=== PATIENT | male | born 1945 | race Caucasian/White ===

== ENCOUNTER 2018-07-25 10:09 | Day surgery (SDC) | payer MEDICARE, OTHER ==
[~2018-07-25 10:09] MED LIST: Acetaminophen TAB* 325 MG PO PRN; Buffered Lidocaine 1% SYRIN* 1 ML/SYRINGE INTRADERM ONE; Cyclopentolate 1% OPTH.SOL* 2 ML BTL ONE; Ketorolac 0.5% OPHTH (NF) 0.5 % 5 ML BTL ONE; Lidocaine 1%* 5 ML VIAL ONE; Neomycin/Polymy/Dex OPHTH.OIN* 3.5 GM ONE; Phenylephrine 2.5% OPTH.SOL* 2 ML BTL ONE; Tetracaine 0.5% OPTH.SOL 4 ML* 1 DROP BTL ONE; Tropicamide 1% OPTH.SOL* BTL ONE
[2018-07-25] MEDS ORDERED: fentaNYL* 50 MCG/ML 2 ML VIAL (100 MCG VIAL) ONE (11:50)
[2018-07-25] MEDS ORDERED: Midazolam* 1 MG/ML 2 ML VIAL (2 MG) ONE (11:51)
[2018-07-25 13:09] VITALS: BP 158/71
--- NOTE | 2018-07-25 20:14 | OP ---
DATE OF OPERATION: 07/25/18 [facility] DATE OF : 43 SURGEON: Dr. Adam Santana. CONTROL PANEL OPERATOR: None. ANESTHESIA: Topical with intravenous sedation. PRE-OP DIAGNOSIS: Cataract, right eye. POST-OP DIAGNOSIS: Cataract, right eye. OPERATIVE PROCEDURE: Phacoemulsification and cataract extraction with posterior chamber intraocular lens implant, right eye. COMPLICATIONS: None. BLOOD LOSS: None. DESCRIPTION OF PROCEDURE: The patient was brought to the operating room and received a small amount of intravenous sedation. A drop of Tetracaine was placed in his right eye. He was prepped and draped in the usual sterile fashion for ophthalmic surgery and attention was directed to the right eye where a speculum was placed. A paracentesis was created at the 11 o'clock position and 0.1 cc of 1 percent preservative-free Lidocaine was injected into the anterior chamber followed by DisCoVisc. The eye was digitally stabilized while a 2.75 mm keratome was used to create a triplanar clear corneal incision at the 9 o'clock position. A continuous curvilinear capsulorrhexis was created with a cystotome and Utrata forceps. BSS on a cannula was used to hydrodissect the lens from the capsule. Phacoemulsification was performed in a divide-and- conquer technique to create four fragments which were removed. Residual cortical material was removed with irrigation and aspiration. DisCoVisc was used to inflate the capsular bag and an AU00T0 12.5 diopter lens was folded and inserted into the capsular bag. DisCoVisc was removed using irrigation and aspiration. BSS on a cannula was used to hydrate the corneal stroma and seal the wound. At the end of the case the pupil was round and the lens was centered. The eye was of normal pressure and the wound was water tight. The speculum was removed and topical Maxitrol ointment was placed on the surface of the eye. The eye was closed, patched and shielded and the patient was sent to the recovery room in stable condition with post operative instructions and follow-up appointment given. [id number]/CPS #: [id number] ROSSY
== END 2018-07-25 12:52 | disposition home or self-care (01) ==
LOC: OREAST 10:09
PROVIDERS: ATTEND Ophthalmology
DX: H25.11 Age-related nuclear cataract, right eye (principal); I10 Essential (primary) hypertension; I48.91 Unspecified atrial fibrillation; Z87.891 Personal history of nicotine dependence; G47.33 Obstructive sleep apnea (adult) (pediatric); D53.9 Nutritional anemia, unspecified
CPT/HCPCS: A9270-GY; J2250; J3010; V2632

== ENCOUNTER 2018-08-01 08:27 | Day surgery (SDC) | payer MEDICARE, OTHER ==
[~2018-08-01 08:27] MED LIST changes: -Cyclopentolate 1% OPTH.SOL* 2 ML BTL ONE; -Ketorolac 0.5% OPHTH (NF) 0.5 % 5 ML BTL ONE; -Lidocaine 1%* 5 ML VIAL ONE; -Neomycin/Polymy/Dex OPHTH.OIN* 3.5 GM ONE; -Phenylephrine 2.5% OPTH.SOL* 2 ML BTL ONE; -Tetracaine 0.5% OPTH.SOL 4 ML* 1 DROP BTL ONE; -Tropicamide 1% OPTH.SOL* BTL ONE
[2018-08-01] MEDS ORDERED: fentaNYL* 50 MCG/ML 2 ML VIAL (100 MCG VIAL) ONE (09:32)
[2018-08-01] MEDS ORDERED: Midazolam* 1 MG/ML 2 ML VIAL (2 MG) ONE (09:32)
[2018-08-01 10:37] VITALS: BP 173/74
--- NOTE | 2018-08-01 11:08 | OP ---
DATE OF OPERATION: 08/01/18 [facility] DATE OF : 43 SURGEON: Dr. Adam Santana. PROJECT MANAGER SENIOR: None. ANESTHESIA: Topical with intravenous sedation. PRE-OP DIAGNOSIS: Cataract, left eye. POST-OP DIAGNOSIS: Cataract, left eye. OPERATIVE PROCEDURE: Phacoemulsification and cataract extraction with posterior chamber intraocular lens implant, left eye. COMPLICATIONS: None. BLOOD LOSS: None. DESCRIPTION OF PROCEDURE: The patient was brought to the operating room and received a small amount of intravenous sedation. A drop of Tetracaine was placed in his left eye. He was prepped and draped in the usual sterile fashion for ophthalmic surgery and attention was directed to the left eye where a speculum was placed. A paracentesis was created at the 5 o'clock position and 0.1 cc of 1 percent preservative-free Lidocaine was injected into the anterior chamber followed by DisCoVisc. The eye was digitally stabilized while a 2.75 mm keratome was used to create a triplanar clear corneal incision at the 3 o' clock position. A continuous curvilinear capsulorrhexis was created with a cystotome and Utrata forceps. BSS on a cannula was used to hydrodissect the lens from the capsule. Phacoemulsification was performed in a divide-and- conquer technique to create four fragments which were removed. Residual cortical material was removed with irrigation and aspiration. DisCoVisc was used to inflate the capsular bag and an AU00T0 14.5 diopter lens was folded and inserted into the capsular bag. DisCoVisc was removed using irrigation and aspiration. BSS on a cannula was used to hydrate the corneal stroma and seal the wound. At the end of the case the pupil was round and the lens was centered. The eye was of normal pressure and the wound was water tight. The speculum was removed and topical Maxitrol ointment was placed on the surface of the eye. The eye was closed, patched and shielded and the patient was sent to the recovery room in stable condition with post operative instructions and follow-up appointment given. [id number] #: [id number] ROSSY
[2018-08-01] MEDS ORDERED: Cyclopentolate 1% OPTH.SOL* 2 ML BTL ONE (15:27)
[2018-08-01] MEDS ORDERED: Neomycin/Polymy/Dex OPHTH.OIN* 3.5 GM ONE (15:27)
[2018-08-01] MEDS ORDERED: Phenylephrine 2.5% OPTH.SOL* 2 ML BTL ONE (15:27)
[2018-08-01] MEDS ORDERED: Tetracaine 0.5% OPTH.SOL 4 ML* 1 DROP BTL ONE (15:27)
[2018-08-01] MEDS ORDERED: Tropicamide 1% OPTH.SOL* BTL ONE (15:27)
[2018-08-01] MEDS ORDERED: Lidocaine 1%* 5 ML VIAL ONE (15:27)
[2018-08-01] MEDS ORDERED: Ketorolac 0.5% OPHTH (NF) 0.5 % 5 ML BTL ONE (15:27)
== END 2018-08-01 10:42 | disposition home or self-care (01) ==
LOC: OREAST 08:27
PROVIDERS: ATTEND Ophthalmology
DX: H25.12 Age-related nuclear cataract, left eye (principal); I48.0 Paroxysmal atrial fibrillation; G47.33 Obstructive sleep apnea (adult) (pediatric); I12.9 Hypertensive chronic kidney disease with stage 1 through stage 4 chronic kidney disease, or unspecified chronic kidney disease; Z87.891 Personal history of nicotine dependence; N18.9 Chronic kidney disease, unspecified; A69.23 Arthritis due to Lyme disease
CPT/HCPCS: A9270-GY; J2250; J3010; V2632

== ENCOUNTER 2019-03-13 21:36 | Emergency (ER) | payer MEDICARE, OTHER ==
--- OUTSIDE RECORDS SUMMARY | 2019-03-13 21:44 | XMS REPORT | Summary of Care ---
:1945 Author Organization [facility] Address [address] [address] Care Team Providers Name Role Phone Mine Shanks MD Primary Care Provider Adam Santana MD Unavailable Encounter Details Date Type Department Care Team Description 03/01/2019 Hospital Encounter [facility] Infusion Center Outpatient [address] [id number] Allergies Active Allergy Reactions Severity Noted Date Comments Billy Inhibitors Rash 12/02/2008 Lethergy, generalized weakness, joint pain Amiodarone SERVICES MANAGER Reaction High 06/08/2008 Apparent cause of severe peripheral neuropathy. Beta Adrenergic Cardiac Reaction 01/10/2013 bradycardia Blockers Dronedarone GI Reaction, Hives Medium 01/24/2013 Metoprolol Other 12/14/2013 Propafenone Other, Musculoskeletal High 08/02/2013 Impaired gait documented as of this encounter (statuses as of 03/03/2019) Medications Medication Sig Dispensed Refills Start Date End Date Status VITAMIN C CR PO Take 1,000 mg by 0 Active mouth TWICE DAILY. Saw [place] (Serenoa Take 500 mg by 0 Active repens) 500 MG Oral Cap mouth TWICE DAILY. COD LIVER OIL PO Take 1 Tab by 0 Active mouth EVERY MORNING. aspirin (ECOTRIN) 81 MG Take 81 mg by 0 Active Oral Tab EC mouth DAILY. finasteride (PROSCAR) 5 Take 5 mg by 0 Active MG Oral Tab mouth DAILY. potassium chloride Take 1 Tab by 90 Tab 3 05/29/2018 Active (K-DUR) 20 MEQ Oral Tab mouth DAILY. CRIndications: Essential hypertension B Complex Vitamins (B Take 1 Tab by 0 Active COMPLEX 1 PO) mouth DAILY. gabapentin (NEURONTIN) Take 1 Cap by 90 Cap 3 11/27/2018 Active 300 MG Oral Cap mouth EVERY BEDTIME. bumetanide (BUMEX) 1 MG Take 1 Tab by 90 Tab 2 11/27/2018 Active Oral TabIndications: mouth DAILY. 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 PAF (paroxysmal atrial fibrillation) 01/10/2013 Overview: Nuclear medicine stress test - 01/06 [facility] normal LV ef ; no ischemia Status post ablation with Dr Lerma - 10/08 with success (12/08)- no pacer BMI 38.0-38.9,adult 12/11/2010 Degenerative lumbar spinal stenosis 05/13/2010 ANDRES (obstructive sleep apnea) 03/07/2009 Overview: Uses cpap- (complicated by Afib and htn ); update - 06/08 Lost 40 lbs and no longer feels he is actively has obsructive sleep apnea; 11/2013 [facility]- CPAP 11 cm pressure 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 Overview: Amiodarone- stopped- on 4 years - but has peripheral neuropathy from this - with mild improvmeent after stopping Has been reevaluated 04/10 by [facility] neurologoy and parkinsons disease/ and MG has been rule out - Diagnosis of primary polyradiuculopathy (EMG finding) made Renal insufficiency 01/15/2008 Anemia 01/15/2008 Overview: Chronic - Has had investigations in the past - documented as of this encounter (statuses as of 03/03/2019) Resolved Problems Problem Noted Date Resolved Date detention current use of anticoagulant therapy 08/02/2013 07/13/2018 Overview: Off anticoag 3 month after successful ablation 02/08 not on anticoag secondary to to falls Warfarin d/c'd 12/12/13 Intial Referral 08/02/13 Referring RCrepetMD Indication Afib Target Range 2.0-3.0 Duration Undetermined Initial Anticoag Orders 08/02/13 CHADS2 Score = 1 for HTN documented as of this encounter (statuses as of 03/03/2019) Immunizations Name Administration Dates Next Due TDAP Vaccine 12/11/2010 documented as of this encounter Social History Tobacco Use Types Packs/Day Years Used Date Former Smoker 3 Quit: 11/14/1967 Smokeless Tobacco: Never Used Alcohol Use Drinks/Week oz/Week Comments Yes 2 Glasses of wine 2.0 occasionally 0 Cans of beer Sex Assigned at Date Recorded Not on file Job Start Date Occupation Industry Not on file Not on file Not on file Travel History Travel Start Travel End No recent travel history available. documented as of this encounter Last Filed Vital Signs Vital Sign Reading Time Taken Comments Blood Pressure 142/72 03/01/2019 1:15 PM EDT Pulse 58 03/01/2019 1:15 PM EDT Temperature 36.9 03/01/2019 1:15 PM C (98.4 EDT F) Respiratory Rate - - Oxygen Saturation - - Inhaled Oxygen Concentration - - Weight 115.8 kg (255 lb 6.4 oz) 03/01/2019 1:15 PM shoes on EDT Height - - Body Mass Index 38.83 02/22/2019 2:32 PM EDT documented in this encounter Plan of Treatment Date Type Specialty Care Team Description 03/08/2019 Appointment Infusion Therapy 03/15/2019 Appointment Infusion Therapy 03/22/2019 Office Visit Hematology and Oncology Veronique Garcia MD [address] [address] [phone] 03/22/2019 Appointment Infusion Therapy 04/10/2019 Lab Internal Medicine 04/17/2019 Office Visit Internal Medicine Mine Shanks MD [address] [place] [address] [phone] 05/10/2019 Office Visit Nephrology Juancarlos Willis DO [address] [address] [phone] 09/26/2019 Office Visit Orthopedics Tashi Moss MD [address] [address] [phone] Health Maintenance Due Date Last Done Comments MEDICARE ANNUAL WELLNESS 1945 VISIT HIV SCREENING 1959 FOOT EXAM 1962 COLONOSCOPY SCREENING 1994 ZOSTER IMMUNIZATION SERIES 1994 (1 of 2) AAA SCREENING/SURVEILLANCE 2009 PNEUMOCOCCAL 65+YRS (1 of 2 2009 - PCV13) HEMOGLOBIN A1C 07/15/2018 01/12/2018, 07/07/2017, 05/15/2015, Additional history exists LIPID DISORDER SCREENING 01/12/2019 01/12/2018, 06/17/2016, 01/11/2008 INFLUENZA VACCINE (#1) 2019 FALL RISK ASSESSMENT 09/29/2019 09/28/2018, 09/28/2018 DEPRESSION SCREENING 10/10/2019 10/09/2018 Diabetic Eye Exam 07/12/2020 07/12/2018, 06/28/2017 HPV IMMUNIZATION SERIES Aged Out No longer eligible based on patient's age to complete this topic MENINGOCOCCAL VACCINE IMM Aged Out No longer eligible based on patient's age to complete this topic documented as of this encounter Goals Goal Patient Goal Associated Recent Patient-Stated? Author Type Problems Progress Blood Pressure Blood Pressure 142/72 No Dimitris, < 140/90 (03/01/2019 MD Mine 1:15 PM EDT) Note: This is an individualized treatment (blood pressure) goal for Miles Meyer: Displayed above (on the left) is your goal for blood pressure control. Your most recent blood pressure is also shown above, on the right. You should try to achieve blood pressures that are lower than your goal listed above (on the left). Glycohemoglobin A1c < 7.0 Diabetes 6.1 (01/12/2018 9:04 AM No Mine Shanks MD EDT) Note: This is an individualized treatment (diabetes control, HgbA1C) goal for Miles Meyer: Displayed above is your progress towards your HgbA1C goal. Your goal is shown above (on the left); your most recent HgbA1C is shown on the right. Note that lower numbers are better. Weight loss vs. 18 mo Lifestyle 19.7 (03/01/2019 1:15 PM No Mine Shanks MD max (lbs) >= 10 EDT) Note: This is an individualized lifestyle goal for Miles Meyer: Your body mass index (BMI) is more than 30. You should lose weight. A reasonable starting goal is to lose 10 pounds. Displayed above is how many pounds you have lost thus far towards your 10 pound weight loss goal. Keep immunizations current Lifestyle No Mine Shanks MD Note: This is an individualized lifestyle goal for Miles Meyer: Please be sure to keep up-to-date on recommended immunizations. For example, this would include a yearly influenza vaccine. Immunization status can be seen by looking at the Health Maintenance sections of your e[facility], Plan of Care, and any After Visit Summaries. Take all prescribed medications as directed Self-management Mine Alex MD Note: This is an individualized self-management goal for Miles Meyer: Please take all prescribed medications as directed. 1. Do not skip doses. If you cannot afford your medications, talk with your doctor. 2. Use a pill reminder system such as a pill box if needed. Your pharmacist can help you with this. 3. Contact your Pharmacy 5 days before your medication runs out. If you cannot take your medications for any reasons, talk with your doctor. 4. Please bring all of your medication bottles and inhalers (or a list of all your medications/inhalers) with you to every visit. Potential barriers to meeting all of your care plan goals will continue to be addressed on an ongoing basis. documented as of this encounter Implants Implanted Type Area Senior Lead Project Manager Device Shelf Model / Identifier Expiration Serial / Lot Date Cementless Finned Stems 20mm - [id number] Right: CROSS 10/24/2020 [id number] / Implanted: Qty: 1 on 10/12/2016 by Tashi Moss MD at [facility] Shoulder / [id number] Finned Humeral Body Anatomic - [id number] Right: CROSS 07/27/2021 [id number] / Implanted: Qty: 1 on 10/12/2016 by Tashi Moss MD at [facility] Shoulder / [id number] Cta Humeral Heads 46mm - [id number] Right: CROSS 08/24/2020 [id number] / Implanted: Qty: 1 on 10/12/2016 by Tashi Moss MD at [facility] Shoulder / [id number] [employer] 4mm - [id number] Right: AMERICA 11/24/2020 [id number] / Implanted: Qty: 1 on 10/12/2016 by Tashi Moss MD at [facility] Shoulder / [id number] documented as of this encounter Results Not on filedocumented in this encounter Administered Medications Medication Order MAR Action Action Date Dose Rate Site epoetin yuko (PROCRIT) Given 03/01/2019 1:30 40,000 Units Arm - Upper Left injection 40,000 Units PM EDT 40,000 Units, Subcutaneous, X1, 1 dose, First dose on Laureen 03/01/19 at 1430 documented in this encounter Insurance Payer Benefit Plan / Subscriber ID Effective Phone Address Type Group Dates MEDICARE MEDICARE PART A xxxxxxxxxxx 2009-Pres Medicare & B ent COMMERCIAL COMMERCIAL xxxxxxxxx-xx Effective for Commercial GENERIC GENERIC PLAN all dates Guarantor Name Account Type Relation to Date of Phone Billing Patient Address [place] Personal/Family 1945 [address] (Home) [place], [place] [phone] (Work) documented as of this encounter
--- OUTSIDE RECORDS SUMMARY | 2019-03-13 21:44 | XMS REPORT | Summary of Care ---
:1945 Author Organization [facility] Address [address] [address] Care Team Providers Name Role Phone Mine Shanks MD Primary Care Provider Adam Santana MD Unavailable Encounter Details Date Type Department Care Team Description 03/08/2019 Hospital Encounter [facility] Infusion Center Outpatient [address] [id number] Allergies Active Allergy Reactions Severity Noted Date Comments Billy Inhibitors Rash 12/02/2008 Lethergy, generalized weakness, joint pain Amiodarone ELECTRICAL HIGH TENSION TESTER Reaction High 06/08/2008 Apparent cause of severe peripheral neuropathy. Beta Adrenergic Cardiac Reaction 01/10/2013 bradycardia Blockers Dronedarone GI Reaction, Hives Medium 01/24/2013 Metoprolol Other 12/14/2013 Propafenone Other, Musculoskeletal High 08/02/2013 Impaired gait documented as of this encounter (statuses as of 03/10/2019) Medications Medication Sig Dispensed Refills Start Date End Date Status VITAMIN C CR PO Take 1,000 mg by 0 Active mouth TWICE DAILY. 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 PAF (paroxysmal atrial fibrillation) 01/10/2013 Overview: Nuclear medicine stress test - 01/06 [facility] normal LV ef ; no ischemia Status post ablation with Dr Lerma - 10/08 with success (12/08)- no pacer BMI 38.0-38.9,adult 12/11/2010 Degenerative lumbar spinal stenosis 05/13/2010 ANDRES (obstructive sleep apnea) 03/07/2009 Overview: Uses cpap- (complicated by Afib and htn ); update - 06/08 Lost 40 lbs and no longer feels he is actively has obsructive sleep apnea; 11/2013 [facility] Sleep Clinic- CPAP 11 cm pressure Idiopathic [...] as of this encounter (statuses as of 03/10/2019) Resolved Problems Problem Noted Date Resolved Date care home current use of anticoagulant therapy 08/02/2013 07/13/2018 Overview: Off anticoag 3 month after successful ablation 02/08 not on anticoag secondary to to falls Warfarin d/c'd 12/12/13 Intial Referral 08/02/13 Referring RCrepetMD Indication Afib Target Range 2.0-3.0 Duration Undetermined Initial Anticoag Orders 08/02/13 CHADS2 Score = 1 for HTN documented as of this encounter (statuses as of 03/10/2019) Immunizations Name Administration Dates Next Due TDAP [...] of this encounter Last Filed Vital Signs Not on filedocumented in this encounter Discharge Instructions Aicah Reddy RN - 03/08/2019[facility] Medications Given Today: Retacrit Contact information: Please call the Infusion Nurses at [phone] if you have any questions, problems, or uncontrolledsymptoms. Please call the Hematology/Oncology Clinic at [phone] if you need to reschedule an appointment,talk to a provider, or request a prescription refill. If you are having uncontrolled symptoms and need to speak with a provider after 5pm, weekends, holidays please call [phone] and ask to speak with the oncologist beauty consultant. Reminders: Drink lots of fluids Call if any fever over 100.5 Please call anytime with any questions or concerns. documented in this encounter Plan of Treatment Date Type Specialty Care Team Description 03/15/2019 Appointment Infusion Therapy 03/22/2019 Office Visit Hematology and Oncology Veronique Garcia MD [address] [address] 03/22/2019 Appointment Infusion Therapy 04/10/2019 Lab Internal Medicine 04/17/2019 Office Visit Internal Medicine Mine Shanks MD [address] [place] [address] 05/10/2019 Office Visit Nephrology Juancarlos Willis DO [address] [address] 09/26/2019 Office Visit Orthopedics Tashi Moss MD [address] [address] [phone] Health Maintenance Due Date Last Done Comments [...] Take all prescribed medications as directed Self-management No Mine Shanks MD Note: This is an individualized self-management [...] of this encounter Implants Implanted Type Area Sheltered Workshop Worker Device Shelf Model / Identifier Expiration Serial / Lot Date Cementless Finned Stems 20mm - [id number] Right: [place] 10/24/2020 [id number] / Implanted: Qty: 1 on 10/12/2016 by Tashi Moss MD at [facility] Shoulder / [id number] Finned Humeral Body Anatomic - [id number] Right: AMERICA 07/27/2021 [id number] / Implanted: Qty: 1 on 10/12/2016 by Tashi Moss MD at [facility] / [id number] Cta Humeral Heads 46mm - [id number] Right: CROSS 08/24/2020 [id number] / Implanted: Qty: 1 on 10/12/2016 by Tashi Moss MD at [facility] Shoulder / [id number] Anataomic Adaptors 4mm - [id number] Right: CROSS 11/24/2020 [id number] / Implanted: Qty: 1 on 10/12/2016 by Tashi Moss MD at [facility] / [id number] documented as of this encounter Procedures Procedure Name Priority Date/Time Associated Diagnosis Comments CBC WITH DIFFERENTIAL STAT 03/08/2019 1:15 Renal insufficiency Results for this PM EDT procedure are in the results section. RBC MORPHOLOGY SMEAR STAT 03/08/2019 1:15 Renal insufficiency Results for this PM EDT procedure are in the results section. BASIC METABOLIC PANEL Routine 03/08/2019 1:15 Renal insufficiency Results for this PM EDT procedure are in the results section. documented in this encounter Results RBC MORPHOLOGY SMEAR (03/08/2019 1:15 PM EDT) RBC MORPHOLOGY abnormal (A) Normal [facility] Anisocytosis 1+ [facility] Macrocytes 2+ [facility] Ovalocytes 1+ [facility] Poikilocytosis 1+ [facility] Polychromasia 2+ [facility] Tear Drop Cells 1+ [facility] Specimen Blood Performing Organization Address City/State/Zipcode Phone Number [facility] [address] [place] [address] CBC WITH DIFFERENTIAL (03/08/2019 1:15 PM EDT) WBC Count 7.34 4.23 - 9.07 K/uL [facility] RBC Count 2.44 (L) 4.30 - 5.89 M/UL [facility] Hemoglobin 9.1 (L) 13.7 - 17.5 g/dL [facility] Hematocrit 27.7 (L) 40.1 - 51.0 % [facility] MCV 113.5 (H) 79.0 - 92.2 FL [facility] MCH 37.3 (H) 25.7 - 32.2 PG [facility] MCHC 32.9 32.3 - 36.5 g/dL [facility] Platelet Count 324 163 - 337 K/uL [facility] MPV 9.4 9.4 - 12.4 FL [facility] RDW 14.6 (H) 11.6 - 14.4 % [facility] Neutrophil % 49.8 34.0 - 67.9 % [facility] Lymphocyte % 32.3 21.8 - 53.1 % [facility] Monocyte % 11.6 5.3 - 12.2 % [facility] Eosinophil % 5.0 0.8 - 7.0 % [facility] Basophil % 1.0 0.2 - 1.2 % [facility] nRBC % 0.5 (H) 0.0 - 0.2 % [facility] Neutrophil # 3.66 1.78 - 5.38 K/UL [facility] Lymphocyte # 2.37 1.32 - 3.57 K/UL [facility] Monocyte # 0.85 (H) 0.30 - 0.82 K/UL [facility] Eosinophil # 0.37 0.04 - 0.54 K/UL [facility] Basophil # 0.07 0.01 - 0.08 K/UL [facility] Immature Gran % 0.3 0.0 - 0.4 % [facility] Immature Gran # 0.02 0.00 - 0.03 K/uL [facility] NRBC # 0.04 0.00 - 0.12 K/uL [facility] Specimen Blood Performing Organization Address City/State/Zipcode Phone Number [facility] [address] [address] BASIC METABOLIC PANEL (03/08/2019 1:15 PM EDT) Glucose 105 (H) 70 - 99 mg/dl [facility] BUN 49 (H) 9 - 20 mg/dl [facility] Creatinine 2.0 (H) 0.8 - 1.5 mg/dl [facility] Sodium 139 134 - 145 mmol/L [facility] Potassium 4.8 3.5 - 5.1 mmol/L [facility] Chloride 105 98 - 107 mmol/L [facility] CO2 23 22 - 30 mmol/L [facility] Calcium 10.2 (H) 8.3 - 10.1 mg/dl [facility] eGFR 33 See Interpretation [facility] Comment: Below ml/min/1.73ml [facility] Estimated GFR Interpretation: Above 60ml/min/1.73m2 = Normal Renal Function 30-59 ml/min/1.73m2 = Stage 3 Chronic Kidney Disease 15-29 ml/min/1.73m2 = Stage 4 Chronic Kidney Disease Less than 15 ml/min/1.73m2 = Stage 5 Chronic Kidney Disease The GFR value is calculated using the Modification of Diet in Renal Disease ( MDRD) Study Equation which can be found at: https://www.kidney.org/content/jakw-peqwt-tvygvity BUN/Creatinine 25 (H) 6 - 22 RATIO [facility] Anion Gap 11 3 - 11 mmol/L [facility] Specimen Blood Performing Organization Address City/State/Zipcode Phone Number [facility] [address] [address] documented in this encounter Visit Diagnoses Diagnosis Renal insufficiency Unspecified disorder of kidney and ureter documented in this encounter Administered Medications Medication Order MAR Action Action Date Dose Rate Site epoetin yuko-epbx Given 03/08/2019 1:51 40,000 Units Arm - Upper Left (RETACRIT) injection PM EDT 40,000 Units 40,000 Units, Subcutaneous, X1, 1 dose, First dose on Laureen 03/08/19 at 1450 documented in this encounter Insurance Payer Benefit Plan / Subscriber ID Effective Phone Address Type Group Dates MEDICARE MEDICARE PART A xxxxxxxxxxx 2009-Pres Medicare & B ent COMMERCIAL COMMERCIAL xxxxxxxxx-xx Effective for Commercial GENERIC GENERIC PLAN all dates Guarantor Name Account Type Relation to Date of Phone Billing Patient Address Miles Meyer Personal/Family 1945 [address] (Home) [place], [place] [phone] (Work) documented as of this encounter
--- OUTSIDE RECORDS SUMMARY | 2019-03-13 21:44 | XMS REPORT | Summary of Care ---
:1945 Author Organization [facility] Address [address] [address] Care Team Providers Name Role Phone Mine Shanks MD Primary Care Provider Adam Santana MD Unavailable Encounter Details Date Type Department Care Team Description 02/22/2019 Hospital Encounter [facility] Infusion Center Outpatient [address] [id number] Allergies Active Allergy Reactions Severity Noted Date Comments Billy Inhibitors Rash 12/02/2008 Lethergy, generalized weakness, joint pain Amiodarone CERTIFIED NURSING ASSISTANT Reaction High 06/08/2008 Apparent cause of severe peripheral neuropathy. Beta Adrenergic Cardiac Reaction 01/10/2013 bradycardia Blockers Dronedarone GI Reaction, Hives Medium 01/24/2013 Metoprolol Other 12/14/2013 Propafenone Other, Musculoskeletal High 08/02/2013 Impaired gait documented as of this encounter (statuses as of 02/24/2019) Medications Medication Sig Dispensed Refills Start Date End Date Status VITAMIN C CR PO Take 1,000 mg by 0 Active mouth TWICE DAILY. 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 08/02/2013 07/13/2018 Overview: Off anticoag 3 month after successful ablation 02/08 not on anticoag secondary to to falls Warfarin d/c'd 12/12/13 Intial Referral 08/02/13 Referring RCrepetMD Indication Afib Target Range 2.0-3.0 Duration Undetermined Initial Anticoag Orders 08/02/13 CHADS2 Score = 1 for HTN documented as of this encounter (statuses as of 02/24/2019) Immunizations Name Administration Dates Next Due TDAP [...] Signs Not on filedocumented in this encounter Plan of Treatment Date Type Specialty Care Team Description 03/01/2019 Appointment Infusion Therapy 03/08/2019 Appointment Infusion Therapy 03/15/2019 Appointment Infusion Therapy 03/22/2019 Office Visit Hematology and Oncology Veronique Garcia MD [address] [address] [phone] 03/22/2019 Appointment Infusion Therapy 04/10/2019 Lab Internal Medicine 04/17/2019 Office Visit Internal Medicine Mine Shanks MD [address] [place] [address] [phone] 05/10/2019 Office Visit Nephrology Juancarlos Willis DO [address] [address] [phone] 09/26/2019 Office Visit Orthopedics Tashi Moss MD [address] [address] Health Maintenance Due Date Last Done Comments MEDICARE ANNUAL WELLNESS 1945 VISIT HIV SCREENING 1959 FOOT EXAM 1962 COLONOSCOPY SCREENING 1994 ZOSTER IMMUNIZATION SERIES 1994 (1 of 2) AAA SCREENING/SURVEILLANCE 2009 PNEUMOCOCCAL 65+YRS (1 of 2 2009 - PCV13) HEMOGLOBIN A1C 07/15/2018 01/12/2018, 07/07/2017, 05/15/2015, Additional history exists LIPID DISORDER SCREENING 01/12/2019 01/12/2018, 06/17/2016, 01/11/2008 INFLUENZA VACCINE (#1) 2019 05/11/2014 FALL RISK ASSESSMENT 09/29/2019 09/28/2018, 09/28/2018 DEPRESSION [...] Type Problems Progress Blood Pressure Blood Pressure 120/68 No Dimitris, < 140/90 (02/22/2019 MD Mine 2:32 PM EDT) Note: This is an individualized [...] better. Weight loss vs. 18 mo Lifestyle 15.1 (02/22/2019 2:32 PM No Mine Shanks MD max (lbs) [...] of this encounter Implants Implanted Type Area Manager Office Device Shelf Model / Identifier Expiration Serial / Lot Date Cementless Finned Stems 20mm - [id number] Right: CROSS 10/24/2020 1304.15.200 / Implanted: Qty: 1 on 10/12/2016 by Tashi Moss MD at [facility] Shoulder / [id number] Finned Humeral Body Anatomic - [id number] Right: CROSS 07/27/2021 1350.15.110 / Implanted: Qty: 1 on 10/12/2016 by Tashi Moss MD at [facility] Shoulder / [id number] Cta Humeral Heads 46mm - [id number] Right: CROSS 08/24/2020 [id number] / Implanted: Qty: 1 on 10/12/2016 by Tashi Moss MD at [facility] Shoulder / [id number] Anataomic Adaptors 4mm - [id number] Right: CROSS 11/24/2020 [id number] / Implanted: Qty: 1 on 10/12/2016 by Tashi Moss MD at [facility] Shoulder / [id number] documented as of this encounter Results Not on filedocumented in this encounter Administered Medications Medication Order MAR Action Action Date Dose Rate Site epoetin yuko (PROCRIT) Given 02/22/2019 3:16 40,000 Units Arm - Upper Left injection 40,000 Units PM EDT 40,000 Units, Subcutaneous, X1, 1 dose, First dose on Laureen 02/22/19 at 1610 documented in this encounter Insurance Payer Benefit Plan / Subscriber ID Effective Phone Address Type Group Dates MEDICARE MEDICARE PART A xxxxxxxxxxx 2009-Pres Medicare & B ent COMMERCIAL COMMERCIAL xxxxxxxxx-xx Effective for Commercial GENERIC GENERIC PLAN all dates Guarantor Name Account Type Relation to Date of Phone Billing Patient Address Miles Meyer Personal/Family 1945 [facility] [address] (Home) [place], [place] [phone] (Work) documented as of this encounter
--- NOTE | 2019-03-13 21:45 | UC ---
Ear Complaint HPI - HPI Summary HPI Summary: Patient is a 73yo male presenting with rubber ear piece from hearing aide lodged in his right ear. He denies any pain and just came to have it removed. - History of Current Complaint Stated Complaint: HEARING AID STUCK IN EAR Time Seen by Provider: 03/13/19 21:38 Hx Obtained From: Patient Onset/Duration: Sudden Onset Severity Currently: None - Allergies/Home Medications Allergies/Adverse Reactions: Allergies Allergy/AdvReac Type Severity Reaction Status Date / Time amiodarone Allergy Severe Peripheral Verified 03/13/19 21:47 Neuropathy metoprolol Allergy Severe weakness Verified 03/13/19 21:47 and hypotension with all betablockers propafenone Allergy Severe Muscle Ache Verified 03/13/19 21:47 dronedarone [From Multaq] Allergy Intermediate Hives Verified 03/13/19 21:47 PMH/Surg Hx/FS Hx/Imm Hx Cardiovascular History: Cardiac Disease Other History Of: Anticoagulant Therapy - warfarin & ASA 81 mg - Surgical History Surgical History: Yes Surgery Procedure, Year, and Place: Laminectomy '08; partial repair rotator cuff '06; vastectomy 40 yrs ago - Family History Known Family History: Positive: Non-Contributory - Social History Occupation: Retired Lives: With Family Alcohol Use: Rare Substance Use Type: None Substance Use Comment - Amount & Last Used: CBD Oil Smoking Status (MU): Former Smoker Type: Cigarettes Length of Time of Smoking/Using Tobacco: 9 pack year Have You Smoked in the Last Year: No When Did the Patient Quit Smoking/Using Tobacco: 1970 - Immunization History Most Recent Influenza Vaccination: never Most Recent Tetanus Shot: within 10 years Most Recent Pneumonia Vaccination: never Review of Systems All Other Systems Reviewed And Are Negative: No Constitutional: Positive: Negative Skin: Positive: Negative Eyes: Positive: Negative ENT: Positive: Ear Ache Respiratory: Positive: Negative Cardiovascular: Positive: Negative Neurological: Positive: Negative Psychological: Positive: Negative Physical Exam Triage Information Reviewed: Yes Appearance: Well-Appearing, No Pain Distress, Well-Nourished Vital Signs: Vital Signs (72 hours) 03/13/19 21:44 Temperature 98.3 F Pulse Rate 72 Respiratory 18 Rate Blood Pressure 158/57 (mmHg) O2 Sat by Pulse 100 Oximetry Vital Signs Reviewed: Yes ENT Exam: Normal, Other - foreign body noted in right ear on exam Ear Complaint Course/Dx - Course Course Of Treatment: Foreign body was easily removed from patient's right ear with hemostats. - Differential Dx/Diagnosis Provider Diagnosis: Foreign body in right ear Discharge ED - Sign-Out/Discharge Documenting (check all that apply): Patient Departure All imaging exams completed and their final reports reviewed: No Studies - Discharge Plan Condition: Stable Disposition: HOME Patient Education Materials: Ear Foreign Body (ED) Referrals: Mine Shanks MD [Primary Care Provider] - If Needed Additional Instructions: Your hearing aid was removed from your ear tonight. Please return or follow up with your primary care physician if you experience ear pain or changes in hearing. - Billing Disposition and Condition Condition: STABLE Disposition: Home
--- OUTSIDE RECORDS SUMMARY | 2019-03-13 21:45 | XMS REPORT | Summary of Care ---
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 Beta Adrenergic Cardiac Reaction 01/10/2013 bradycardia Blockers Dronedarone GI Reaction, Hives Medium 01/24/2013 Metoprolol Other 12/14/2013 Propafenone Other, Musculoskeletal High 08/02/2013 Impaired gait documented as of this encounter (statuses as of 02/17/2019) Medications Medication Sig Dispensed Refills Start Date End Date Status VITAMIN C CR PO Take 1,000 mg by 0 Active mouth TWICE DAILY. Saw [place] (Serenoa Take 500 mg by 0 Active repens) 500 MG Oral mouth TWICE DAILY. Cap COD LIVER OIL PO Take 1 Tab by 0 Active mouth EVERY MORNING. aspirin (ECOTRIN) 81 Take 81 mg by 0 Active MG Oral Tab EC mouth DAILY. finasteride (PROSCAR) Take 5 mg by mouth 0 Active 5 MG Oral Tab DAILY. potassium chloride Take 1 Tab by 90 Tab 3 05/29/2018 Active (K-DUR) 20 MEQ Oral mouth DAILY. Tab CRIndications: Essential hypertension B Complex Vitamins (B Take 1 Tab by 0 Active COMPLEX 1 PO) mouth DAILY. MISC NATURAL PRODUCT Place 3 Caps to 0 Active OP the external eye DAILY. gabapentin (NEURONTIN) Take 1 Cap by 90 Cap 3 11/27/2018 Active 300 MG Oral Cap mouth EVERY BEDTIME. bumetanide (BUMEX) 1 Take 1 Tab by 90 Tab 2 11/27/2018 Active MG Oral mouth DAILY. 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 PAF (paroxysmal atrial fibrillation) 01/10/2013 Overview: Nuclear medicine stress test - 01/06 [facility] normal LV ef ; no ischemia Status post ablation with Dr Lerma - 10/08 with success (12/08)- no pacer BMI 38.0-38.9,adult 12/11/2010 Degenerative lumbar spinal stenosis 05/13/2010 ANDRES (obstructive sleep apnea) 03/07/2009 Overview: Uses cpap- (complicated by Afib and htn ); update - 06/08 Lost 40 lbs and no longer feels he is actively has obsructive sleep apnea; 11/2013 [facility] Sleep Clinic- CPAP 11 cm pressure Idiopathic [...] as of this encounter (statuses as of 02/17/2019) Resolved Problems Problem Noted Date Resolved Date alf current use of anticoagulant therapy 08/02/2013 07/13/2018 Overview: Off anticoag 3 month after successful ablation 02/08 not on anticoag secondary to to falls Warfarin d/c'd 12/12/13 Intial Referral 08/02/13 Referring RCrepetMD Indication Afib Target Range 2.0-3.0 Duration Undetermined Initial Anticoag Orders 08/02/13 CHADS2 Score = 1 for HTN documented as of this encounter (statuses as of 02/17/2019) Immunizations Name Administration Dates Next Due TDAP [...] Sign Reading Time Taken Comments Blood Pressure 140/78 02/15/2019 2:51 PM EDT Pulse 78 02/15/2019 2:51 PM EDT Temperature 36.7 02/15/2019 2:51 PM EDT C (98 F) Respiratory Rate 18 02/15/2019 2:51 PM EDT Oxygen Saturation - - Inhaled Oxygen Concentration - - Weight 122 kg (269 lb) 02/15/2019 2:51 PM EDT Height - - Body Mass Index 40.9 01/25/2019 12:59 PM EDT documented in this encounter Plan of Treatment Date Type Specialty Care Team Description 02/22/2019 Office Visit Hematology and Oncology Veronique Garcia MD [address] [address] 02/22/2019 Appointment Infusion Therapy 04/10/2019 Lab Internal Medicine 04/17/2019 Office Visit Internal Medicine Mine Shanks MD [address] [place] [address] [phone] 05/10/2019 Office Visit Nephrology Juancarlos Willis DO [address] [address] [phone] 09/26/2019 Office Visit Orthopedics Tashi Moss MD [address] [address] [phone] Health Maintenance Due Date Last Done Comments [...] Type Problems Progress Blood Pressure Blood Pressure 140/78 No Dimitris, < 140/90 (02/15/2019 MD Mine 2:51 PM EDT) Note: This is an individualized [...] better. Weight loss vs. 18 mo Lifestyle 6.1 (02/15/2019 2:51 PM EDT) Mine Alex MD max (lbs) >= 10 Note: This is an individualized lifestyle goal [...] of this encounter Implants Implanted Type Area Cell Efficiency Supervisor Device Shelf Model / Identifier Expiration Serial / Lot Date Cementless Finned Stems 20mm - [id number] Right: CROSS 10/24/2020 1304.15.200 / Implanted: Qty: 1 on 10/12/2016 by Tashi Moss MD at [facility] Shoulder / [id number] Finned Humeral Body Anatomic - [id number] Right: CROSS 07/27/2021 1350.15.110 / Implanted: Qty: 1 on 10/12/2016 by Tashi Moss MD at [facility] Shoulder / [id number] Cta Humeral Heads 46mm - [id number] Right: CROSS 08/24/2020 [id number] / Implanted: Qty: 1 on 10/12/2016 by Tashi Moss MD at [facility] Shoulder / [id number] Anataomic Adaptors 4mm - [id number] Right: [place] 11/24/2020 [id number] / Implanted: Qty: 1 on 10/12/2016 by Tashi Moss MD at [facility] Shoulder / [id number] documented as of this encounter Procedures Procedure Name Priority Date/Time Associated Comments Diagnosis CBC WITH DIFFERENTIAL STAT 02/15/2019 2:12 Anemia due to stage Results for this PM EDT 3 chronic kidney procedure are in disease (HCC) the results section. RBC MORPHOLOGY SMEAR STAT 02/15/2019 2:12 Anemia due to stage Results for this PM EDT 3 chronic kidney procedure are in disease (HCC) the results section. documented in this encounter Results RBC MORPHOLOGY SMEAR (02/15/2019 2:12 PM EDT) RBC MORPHOLOGY abnormal (A) Normal [facility] Anisocytosis 1+ [facility] Macrocytes 2+ [facility] Ovalocytes 1+ [facility] Poikilocytosis 1+ [facility] Polychromasia 1+ [facility] Comment: [facility] Received comment: User comments: Slide comments: Specimen Blood Performing Organization Address City/State/Zipcode Phone Number [facility] 1 [facility] [place] [address] [phone] CBC WITH DIFFERENTIAL (02/15/2019 2:12 PM EDT) WBC Count 7.18 4.23 - 9.07 K/uL [facility] RBC Count 2.37 (L) 4.30 - 5.89 M/UL [facility] Hemoglobin 8.8 (L) 13.7 - 17.5 g/dL [facility] Hematocrit 26.6 (L) 40.1 - 51.0 % [facility] MCV 112.2 (H) 79.0 - 92.2 FL [facility] MCH 37.1 (H) 25.7 - 32.2 PG [facility] MCHC 33.1 32.3 - 36.5 g/dL [facility] Platelet Count 393 (H) 163 - 337 K/uL [facility] MPV 9.7 9.4 - 12.4 FL [facility] RDW 14.5 (H) 11.6 - 14.4 % [facility] Neutrophil % 46.8 34.0 - 67.9 % [facility] Lymphocyte % 37.6 21.8 - 53.1 % [facility] Monocyte % 10.9 5.3 - 12.2 % [facility] Eosinophil % 3.5 0.8 - 7.0 % [facility] Basophil % 1.1 0.2 - 1.2 % [facility] nRBC % 0.0 0.0 - 0.2 % [facility] Neutrophil # 3.36 1.78 - 5.38 K/UL [facility] Lymphocyte # 2.70 1.32 - 3.57 K/UL [facility] Monocyte # 0.78 0.30 - 0.82 K/UL [facility] Eosinophil # 0.25 0.04 - 0.54 K/UL [facility] Basophil # 0.08 0.01 - 0.08 K/UL [facility] Immature Gran % 0.1 0.0 - 0.4 % [facility] Immature Gran # 0.01 0.00 - 0.03 K/uL [facility] NRBC # 0.00 0.00 - 0.12 K/uL [facility] Specimen Blood Performing Organization Address City/State/[facility] Phone Number 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) documented in this encounter Administered Medications Medication Order MAR Action Action Date Dose Rate Site epoetin yuko (PROCRIT) Given 02/15/2019 2:48 PM 40,000 Units Left Arm injection 40,000 Units EDT 40,000 Units, Subcutaneous, X1, 1 dose, First dose on Laureen 02/15/19 at 1550 documented in this encounter Insurance Payer Benefit Plan / Subscriber ID Effective Phone Address Type Group Dates MEDICARE MEDICARE PART A xxxxxxxxxxx 2009-Pres Medicare & B ent COMMERCIAL COMMERCIAL xxxxxxxxx-xx Effective for Commercial GENERIC GENERIC PLAN all dates Guarantor Name Account Type Relation to Date of Phone Billing Patient Address Miles Meyer Personal/Family 1945 [address] (Home) [place], [place] [phone] (Work) documented as of this encounter
--- OUTSIDE RECORDS SUMMARY | 2019-03-13 21:45 | XMS REPORT | Summary of Care ---
:1945 Author Organization [facility] Address [address] [address] Care Team Providers Name Role Phone Mine Shanks MD Primary Care Provider Adam Santana MD Unavailable Encounter Details Date Type Department Care Team Description 02/08/2019 Hospital Encounter [facility] Infusion Center Outpatient [address] [phone] Allergies Active Allergy Reactions Severity Noted Date Comments Billy Inhibitors Rash 12/02/2008 Lethergy, generalized weakness, joint pain Amiodarone CAREER DEVELOPER Reaction High 06/08/2008 Apparent cause of severe peripheral neuropathy. Beta Adrenergic Cardiac Reaction 01/10/2013 bradycardia Blockers Dronedarone GI Reaction, Hives Medium 01/24/2013 Metoprolol Other 12/14/2013 Propafenone Other, Musculoskeletal High 08/02/2013 Impaired gait documented as of this encounter (statuses as of 02/10/2019) Medications Medication Sig Dispensed Refills Start Date End Date Status VITAMIN C CR PO Take 1,000 mg 0 Active by mouth TWICE DAILY. Saw [place] Take 500 mg 0 Active (Serenoa repens) by mouth 500 MG Oral Cap TWICE DAILY. COD LIVER OIL PO Take 1 Tab by 0 Active mouth EVERY MORNING. aspirin (ECOTRIN) Take 81 mg by 0 Active 81 MG Oral Tab EC mouth DAILY. finasteride Take 5 mg by 0 Active (PROSCAR) 5 MG mouth DAILY. Oral Tab potassium chloride Take 1 Tab by 90 Tab 3 05/29/2018 Active (K-DUR) 20 MEQ mouth DAILY. Oral Tab CRIndications: Essential hypertension B Complex Vitamins Take 1 Tab by 0 Active (B COMPLEX 1 PO) mouth DAILY. MISC NATURAL Place 3 Caps 0 Active PRODUCT OP to the external eye DAILY. gabapentin Take 1 Cap by 90 Cap 3 11/27/2018 Active (NEURONTIN) 300 MG mouth EVERY Oral Cap BEDTIME. bumetanide (BUMEX) Take 1 Tab by 90 Tab 2 11/27/2018 Active 1 MG Oral mouth DAILY. TabIndications: Hypertension, unspecified type Olmesartan Take 1 Tab by 30 Tab 5 09/05/2018 Discontinued Medoxomil 5 MG mouth DAILY. 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 Sleep Clinic- CPAP 11 cm pressure Idiopathic [...] as of this encounter (statuses as of 02/10/2019) Resolved Problems Problem Noted Date Resolved Date correction current use of anticoagulant therapy 08/02/2013 07/13/2018 Overview: Off anticoag 3 month after successful ablation 02/08 not on anticoag secondary to to falls Warfarin d/c'd 12/12/13 Intial Referral 08/02/13 Referring RCrepetID Indication Afib Target Range 2.0-3.0 Duration Undetermined Initial Anticoag Orders 08/02/13 CHADS2 Score = 1 for HTN documented as of this encounter (statuses as of 02/10/2019) Immunizations Name Administration Dates Next Due TDAP [...] Sign Reading Time Taken Comments Blood Pressure 148/74 02/08/2019 1:48 PM EDT Pulse 64 02/08/2019 1:48 PM EDT Temperature 37 02/08/2019 1:48 PM EDT C (98.6 F) Respiratory Rate 18 02/08/2019 1:48 PM EDT Oxygen Saturation - - Inhaled Oxygen Concentration - - Weight - - Height - - Body Mass Index - - documented in this encounter Discharge Instructions Renata Plaza RN - 02/08/2019[facility] Medications Given Today: Procrit Contact information: Please call the Infusion Nurses at [phone] if you have any questions, problems, or uncontrolledsymptoms. Please call the Hematology/Oncology Clinic at [phone] if you need to reschedule an appointment,talk to a provider, or request a prescription refill. If you are having uncontrolled symptoms and need to speak with a provider after 5pm, weekends, holidays please call [phone] and ask to speak with the oncologist network pricing consultant. Please call anytime with any questions or concerns. documented in this encounter Plan of Treatment Date Type Specialty Care Team Description 02/15/2019 Appointment Infusion Therapy 02/22/2019 Office Visit Hematology and Oncology Veronique Garcia MD [address] [address] [phone] 02/22/2019 Appointment Infusion Therapy 04/10/2019 Lab Internal Medicine 04/17/2019 Office Visit Internal Medicine Mine Shanks MD [address] [place] [address] [phone] 05/10/2019 Office Visit Nephrology Juancarlos Willis DO [address] [address] [phone] 09/26/2019 Office Visit Orthopedics Tashi Moss MD [address] [address] [phone] Health Maintenance Due Date Last Done Comments [...] Type Problems Progress Blood Pressure Blood Pressure 148/74 No Crepet, < 140/90 (02/08/2019 MD Mine 1:48 PM EDT) Note: This is an individualized [...] < 7.0 Diabetes 6.1 (01/12/2018 9:04 AM Mine Alex MD EDT) Note: This is an individualized treatment (diabetes control, HgbA1C) goal for Miles Meyer: Displayed above is your progress towards your HgbA1C goal. Your goal is shown above (on the left); your most recent HgbA1C is shown on the right. Note that lower numbers are better. Weight loss vs. 18 mo Lifestyle 7.1 (01/25/2019 12:59 PM EDT) No Mine Shanks MD max (lbs) >= 10 Note: This [...] this encounter Implants Implanted Type Area Senior Online Marketing Manager Device Shelf Model / Identifier Expiration Serial / Lot Date Cementless Finned Stems 20mm - [id number] Right: CROSS 10/24/2020 1304.15.200 / Implanted: Qty: 1 on 10/12/2016 by Tashi Moss MD at [facility] / [id number] Finned Humeral Body Anatomic - [id number] Right: CROSS 07/27/2021 1350.15.110 / Implanted: Qty: 1 on 10/12/2016 by Tashi Moss MD at [facility] / [id number] Cta Humeral Heads 46mm - [id number] Right: CROSS 08/24/2020 1323.09.460 / Implanted: Qty: 1 on 10/12/2016 by Tashi Moss MD at [facility] / [id number] Anataomic Adaptors 4mm - [id number] Right: CROSS 11/24/2020 1330.15.274 / Implanted: Qty: 1 on 10/12/2016 by Tashi Moss MD at [facility] / [id number] documented as of this encounter Procedures Procedure Name Priority Date/Time Associated Comments Diagnosis CBC WITH DIFFERENTIAL STAT 02/08/2019 1:12 Anemia due to stage Results for this PM EDT 3 chronic kidney procedure are in disease (HCC) the results section. RBC MORPHOLOGY SMEAR STAT 02/08/2019 1:12 Anemia due to stage Results for this PM EDT 3 chronic kidney procedure are in disease (HCC) the results section. documented in this encounter Results RBC MORPHOLOGY SMEAR (02/08/2019 1:12 PM EDT) RBC MORPHOLOGY abnormal (A) Normal [facility] Anisocytosis 1+ [facility] Macrocytes 2+ [facility] Ovalocytes 1+ [facility] Poikilocytosis 1+ [facility] Polychromasia 1+ [facility] Comment: [facility] Received comment: User comments: Slide comments: RBC Fragments 1+ [facility] Specimen Blood Performing Organization Address City/State/Zipcode Phone Number [facility] [address] [place] [address] [address] CBC WITH DIFFERENTIAL (02/08/2019 1:12 PM EDT) WBC Count 7.55 4.23 - 9.07 K/uL [facility] RBC Count 2.37 (L) 4.30 - 5.89 M/UL [facility] Hemoglobin 8.9 (L) 13.7 - 17.5 g/dL [facility] Hematocrit 26.5 (L) 40.1 - 51.0 % [facility] MCV 111.8 (H) 79.0 - 92.2 FL [facility] MCH 37.6 (H) 25.7 - 32.2 PG [facility] MCHC 33.6 32.3 - 36.5 g/dL [facility] Platelet Count 313 163 - 337 K/uL [facility] MPV 9.4 9.4 - 12.4 FL [facility] RDW 14.5 (H) 11.6 - 14.4 % [facility] Neutrophil % 47.8 34.0 - 67.9 % [facility] Lymphocyte % 36.4 21.8 - 53.1 % [facility] Monocyte % 10.3 5.3 - 12.2 % [facility] Eosinophil % 4.2 0.8 - 7.0 % [facility] Basophil % 1.2 0.2 - 1.2 % [facility] nRBC % 0.0 0.0 - 0.2 % [facility] Neutrophil # 3.60 1.78 - 5.38 K/UL [facility] Lymphocyte # 2.75 1.32 - 3.57 K/UL [facility] Monocyte # 0.78 0.30 - 0.82 K/UL [facility] Eosinophil # 0.32 0.04 - 0.54 K/UL [facility] Basophil # 0.09 (H) 0.01 - 0.08 K/UL [facility] Immature Gran % 0.1 0.0 - 0.4 % [facility] Immature Gran # 0.01 0.00 - 0.03 K/uL [facility] NRBC # 0.00 0.00 - 0.12 K/uL [facility] Specimen Blood Performing Organization Address City/State/Zipcode Phone Number [facility] [address] [address] [phone] documented in this encounter Visit Diagnoses Diagnosis 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) documented in this encounter Administered Medications Medication Order MAR Action Action Date Dose Rate Site epoetin yuko (PROCRIT) Given 02/08/2019 3:48 PM 40,000 Units Left Arm injection 40,000 Units EDT 40,000 Units, Subcutaneous, X1, 1 dose, First dose on Laureen 02/08/19 at 1610 documented in this encounter Insurance Payer Benefit Plan / Subscriber ID Effective Phone Address Type Group Dates MEDICARE MEDICARE PART A xxxxxxxxxxx 2009-Pres Medicare & B ent COMMERCIAL COMMERCIAL xxxxxxxxx-xx Effective for Commercial GENERIC GENERIC PLAN all dates Guarantor Name Account Type Relation to Date of Phone Billing Patient Address Miles Meyer Personal/Family 1945 [address] (Home) [place], [place] [phone] (Work) documented as of this encounter
[2019-03-13 21:47] VITALS: BP 158/57
== END 2019-03-13 22:00 | disposition home or self-care (01) ==
LOC: UCEAST 21:36
DX: T16.1XXA Foreign body in right ear, initial encounter (principal); X58.XXXA Exposure to other specified factors, initial encounter; Y92.9 Unspecified place or not applicable; Z87.891 Personal history of nicotine dependence; Z79.01 Long term (current) use of anticoagulants; Z79.82 Long term (current) use of aspirin
CPT/HCPCS: 99212; G0463

== ENCOUNTER 2022-12-09 13:21 | Inpatient (IN) ==
[2022-12-09 14:28] LABS: Hematocrit 23.1 % (38-53); Mean Corpuscular Hemoglobin 36.9 pg (27-33); Mean Corpuscular Hgb Conc 34.7 g/dL (31-36); Mean Corpuscular Volume 106.4 fL (80-97); Mean Platelet Volume 7.6 fL (7.5-11.2); Platelet Count 289 10^3/uL (150-450); Red Blood Count 2.18 10^6/uL (4.06-5.63); Red Cell Distribution Width 23.1 % (12-17); White Blood Count 3.6 10^3/uL (3.6-10.2)
[2022-12-09 14:30] LABS: Activated Partial Thrombo Time 38.5 seconds (26.0-38.0); INR 1.26 (0.88-1.18)
[2022-12-09 15:01] LABS: Albumin 4.1 g/dL (3.2-5.2); Albumin/Globulin Ratio 1.1 (1-3); C Reactive Protein 66.14 mg/L (<8.01); Calcium 9.7 mg/dL (8.6-10.3); Creatinine, Serum 3.15 mg/dL (0.67-1.17); Globulin 3.8 g/dL (2-4); Potassium 4.6 mmol/L (3.5-5.0); Total Bilirubin 1.1 mg/dL (0.2-1.0); Total Protein 7.9 g/dL (6.4-8.9); eGFR CKD-EPI 19.4 (>60)
[2022-12-09 15:12] LABS: ABS Lymphocytes 0.8 10^3/uL (1.0-4.8); ABS Monocytes 0.6 10^3/uL (0.0-1.1); ABS Neutrophils 2.2 10^3/uL (1.5-7.6); Anisocytosis 1+; Lymphocyte % 22.8 %; Macrocytosis 1+; Nucleated Red Blood Cells % 0.1 /100 WBC (0.0-0.4)
[2022-12-09] MEDS ORDERED: Lactated Ringers 1000 ml BAG 500 ML IV ONE (15:41)
[2022-12-09] MEDS ORDERED: cefTRIAXone 1 gm/50 mL D5W 1 GM/50 ML BAG IV ONE (15:48)
[2022-12-09 17:45] LABS: Urine Appearance Clear; Urine Bilirubin Negative (Negative); Urine Blood Negative (Negative); Urine Color Yellow; Urine Glucose Negative (Negative); Urine Ketones Negative (Negative); Urine Nitrite Negative (Negative); Urine Protein Negative (Negative); Urine Urobilinogen Negative (Negative)
[2022-12-09 20:36] LABS: RBC Parasite Smear No Parasites Seen (No Parasite)
[2022-12-09 20:55] LABS: TSH Ultra Thyroid Stim Horm 1.76 mcIU/mL (0.34-5.60)
[2022-12-09] MEDS ORDERED: Lactated Ringers 1000 ml BAG 1,000 ML IV SCH (21:00)
[2022-12-09 21:06] LABS: Folate 17.79 ng/mL (5.90-24.80)
[2022-12-09] MEDS: NS 0.9% 1000 ml BAG 1,000 ML IV SCH (22:29)
[2022-12-09] MEDS: Enoxaparin 30 MG/0.3 ML SYR SUBCUT SCH (22:30)
[2022-12-10] MEDS: NS 0.9% 1000 ml BAG 1,000 ML IV SCH (06:01)
[2022-12-10 06:54] LABS: Anisocytosis 3+; Macrocytosis 2+
[2022-12-10 06:55] LABS: ABS Monocytes 0.7 10^3/uL (0.0-1.1); Calcium 8.6 mg/dL (8.6-10.3); Creatinine, Serum 3.12 mg/dL (0.67-1.17); Eosinophil % 0.3 %; Hematocrit 18.9 % (38-53); Hemoglobin 6.6 g/dL (13.2-16.3); Magnesium 1.9 mg/dL (1.9-2.7); Mean Corpuscular Hemoglobin 37.5 pg (27-33); Mean Corpuscular Hgb Conc 35.2 g/dL (31-36); Mean Corpuscular Volume 106.6 fL (80-97); Mean Platelet Volume 8.1 fL (7.5-11.2); Platelet Count 203 10^3/uL (150-450); Potassium 4.1 mmol/L (3.5-5.0); Red Blood Count 1.77 10^6/uL (4.06-5.63); Red Cell Distribution Width 23.4 % (12-17); White Blood Count 2.7 10^3/uL (3.6-10.2); eGFR CKD-EPI 19.7 (>60)
[2022-12-10] MEDS: CMCS: Febuxostat 40 mg TAB (NF) PO SCH (08:07)
[2022-12-10] MEDS ORDERED: Cefepime 1 GM in Dextrose 1 GM/50 ML BAG IV SCH (12:00)
[2022-12-10 15:54] LABS: Hematocrit 22.9 % (38-53)
[2022-12-10] MEDS ORDERED: cefTRIAXone 1 gm/50 mL D5W 1 GM/50 ML BAG IV SCH (16:00)
[2022-12-10] MEDS: Enoxaparin 30 MG/0.3 ML SYR SUBCUT SCH (20:24)
[2022-12-11 07:31] LABS: Anion Gap 9 mmol/L (2-16); Blood Urea Nitrogen 57 mg/dL (6-24); CO2 Carbon Dioxide 21 mmol/L (22-32); Calcium 8.9 mg/dL (8.6-10.3); Chloride 105 mmol/L (101-111); Creatinine, Serum 2.49 mg/dL (0.67-1.17); Glucose 128 mg/dL (70-100); Sodium 135 mmol/L (135-145); eGFR CKD-EPI 25.8 (>60)
[2022-12-11 07:33] LABS: Hematocrit 21.8 % (38-53); Hemoglobin 7.8 g/dL (13.2-16.3); Mean Corpuscular Hgb Conc 35.9 g/dL (31-36); Mean Corpuscular Volume 103.3 fL (80-97); Platelet Count 202 10^3/uL (150-450); Red Blood Count 2.11 10^6/uL (4.06-5.63); Red Cell Distribution Width 24.7 % (12-17); White Blood Count 3.9 10^3/uL (3.6-10.2)
[2022-12-11 09:12] LABS: ABS Eosinophils 0.2 10^3/uL (0.0-0.5); ABS Lymphocytes 2.2 10^3/uL (1.0-4.8); ABS Monocytes 0.5 10^3/uL (0.0-1.1); ABS Nucleated RBC 0.01 10^3/ul; Eosinophil % 4.6 %; Lymphocyte % 55.4 %; Nucleated Red Blood Cells % 0.2 /100 WBC (0.0-0.4)
[2022-12-11] MEDS: CMCS: Febuxostat 40 mg TAB (NF) PO SCH (09:14)
[2022-12-11 09:50] LABS: Anisocytosis 2+
[2022-12-11 09:51] LABS: Macrocytosis 1+
[2022-12-11 11:18] LABS: ALT 41 U/L (7-52); AST 66 U/L (13-39); Albumin 3.4 g/dL (3.2-5.2); Albumin/Globulin Ratio 1.1 (1-3); Alkaline Phosphatase 50 U/L (35-149); Globulin 3.1 g/dL (2-4); Total Protein 6.5 g/dL (6.4-8.9)
[2022-12-11] MEDS ORDERED: Cefepime 1 GM in Dextrose 1 GM/50 ML BAG IV SCH (13:00)
[2022-12-11 18:37] LABS: % Iron Saturation 87 % (15-55); .Transferrin 114 mg/dL (203-362); Iron 139 ug/dL (50-212); Total Iron Binding Capacity 160 mcg/dL (250-450); Unsaturated Iron Binding 21 ug/dL
[2022-12-11] MEDS: Enoxaparin 30 MG/0.3 ML SYR SUBCUT SCH (22:11)
[2022-12-12 06:47] LABS: Hematocrit 25.7 % (38-53); Mean Corpuscular Hemoglobin 35.4 pg (27-33); Mean Corpuscular Hgb Conc 34.9 g/dL (31-36); Mean Corpuscular Volume 101.3 fL (80-97); Mean Platelet Volume 9.1 fL (7.5-11.2); Platelet Count 219 10^3/uL (150-450); Red Blood Count 2.54 10^6/uL (4.06-5.63); Red Cell Distribution Width 23.5 % (12-17); White Blood Count 4.7 10^3/uL (3.6-10.2)
[2022-12-12 07:09] LABS: Calcium 9.5 mg/dL (8.6-10.3); Creatinine, Serum 2.08 mg/dL (0.67-1.17); Magnesium 1.9 mg/dL (1.9-2.7); Potassium 4.6 mmol/L (3.5-5.0)
[2022-12-12 07:59] LABS: ABS Eosinophils 0.2 10^3/uL (0.0-0.5); ABS Monocytes 0.3 10^3/uL (0.0-1.1); ABS Neutrophils 1.1 10^3/uL (1.5-7.6); Anisocytosis 1+; Eosinophil % 5.3 %; Lymphocyte % 63.9 %; Macrocytosis 1+
[2022-12-12] MEDS: CMCS: Febuxostat 40 mg TAB (NF) PO SCH (09:48)
[2022-12-12 14:27] VITALS: BP 130/59
[2022-12-13 19:41] LABS: Anaplasma phagocytophilum Positive (Negative); B. miyamotoi PCR, B Negative (Negative); Babesia divergens/MO-1 Negative (Negative); Babesia ducani Negative (Negative); Ehrlichia chaffeensis Negative (Negative); Ehrlichia ewingii/canis Negative (Negative); Ehrlichia muris eauclairensis Negative (Negative)
[2022-12-15 14:58] LABS: IgG Immunoblot Negative (Negative); IgM Immunoblot Positive (Negative)
== END 2022-12-12 17:20 | disposition home or self-care (01) | DRG 809 ==
LOC: EDHOLD 13:21 → ED 13:21 → EDHOLD 20:19 → MEDTELE 20:47 → SUATTDRO 12-10 15:18
PROVIDERS: ADMIT Internal Medicine; ATTEND Family Medicine